=== PATIENT | female | born 1925 | race Caucasian/White ===

== ENCOUNTER 2016-12-13 12:50 | Emergency (ER) | payer MEDICARE, BC ==
--- NOTE | 2016-12-13 13:37 | EDM.PDOC ---
ED HPI GENERAL MEDICAL PROBLEM - General Chief Complaint: General Stated Complaint: MENTAL CLARITY ISSUES Time Seen by Provider: 12/13/16 13:00 Source of Information: Reports: Patient History Limitations: Reports: No Limitations - History of Present Illness INITIAL COMMENTS - FREE TEXT/NARRATIVE: History of present illness: 89-year-old female brought in by assisted living transport secondary to concerns of patient being found on the floor. Patient denies fall, and indicates that she doesn't know why she was there but that she's not hurt in any part of her body. Patient didn't tell them when they found her that maybe she had had a stroke now she said that that was an attempt at about junk. Review of systems: As per history of present illness and below otherwise all systems reviewed and negative. Past medical history: As per history of present illness and as reviewed below otherwise noncontributory. Surgical history: As per history of present illness and as reviewed below otherwise noncontributory. Social history: No reported history of drug or alcohol abuse. Family history: As per history of present illness and as reviewed below otherwise noncontributory. Physical exam: HEENT: Atraumatic, normocephalic, pupils reactive, negative for conjunctival pallor or scleral icterus, mucous membranes moist, throat clear, neck supple, nontender, trachea midline. Lungs: Clear to auscultation, breath sounds equal bilaterally, chest nontender. Heart: S1S2, regular, negative for clicks, rubs, or JVD. Abdomen: Soft, nondistended, nontender. Negative for masses or hepatosplenomegaly. Negative for costovertebral tenderness. Pelvis: Stable nontender. Genitourinary: Deferred. Rectal: Deferred. Extremities: Atraumatic, negative for cords or calf pain. Neurovascular unremarkable. Neuro: Awake, alert, oriented. Cranial nerves II through XII unremarkable. Cerebellum unremarkable. Motor and sensory unremarkable throughout. Exam nonfocal. Patient is pleasant and somewhat cooperative but gets agitated easily when questioned too much about her general medical well-being. Patient at K she desires no intervention at this time and is indicating to her daughter who is present at the bedside as well as the son who was on the phone who is a physician that she is adamant she wants no intervention performed that she wants to just go back to her home. Diagnostics: [EKG] Therapeutics: [] Impression: [Medical screen] Plan: [return to home] Definitive disposition and diagnosis as appropriate pending reevaluation and review of above. - Related Data Allergies Allergy/AdvReac Type Severity Reaction Status Date / Time No Known Allergies Allergy Verified 12/13/16 13:02 Home Meds: Home Meds Aspirin 81 mg PO BRK 04/01/16 [History] Bisacodyl [Biscolax] 10 mg RC DAILY PRN 04/01/16 [History] Ca Carbonate/Vitamin D3/Vit K [Calcium + D Soft Chewable Tab] 1 each PO DAILY [History] Dextran 70/Hypromellose [Artificial Tears] 1 drop EYEBOTH QID PRN 04/01/16 [ History] Dextrin [Fiber] 1 package PO DAILY PRN 04/01/16 [History] Doxylamine Succinate [Unisom] 25 mg PO BEDTIME PRN 04/01/16 [History] Glimepiride [Amaryl] 2 mg PO WITHBREAKFAST 04/01/16 [History] Loperamide [Imodium] 2 mg PO ASDIRECTED PRN 04/01/16 [History] Mag Hydrox/Al Hydrox/Simeth [Maalox Maximum Strength Susp] 15 ml PO QID PRN [History] [place]-3/DHA/Epa/Fish Oil [[place] 3 500 Softgel] 1 each PO DAILY 04/01/16 [History ] Pregabalin [Lyrica] 50 mg PO BID 04/01/16 [History] Ramipril [Altace] 5 mg PO DAILY 04/01/16 [History] Simvastatin [Zocor] 40 mg PO BEDTIME 04/01/16 [History] Tolterodine Tartrate [Detrol LA] 4 mg PO DAILY 04/01/16 [History] metFORMIN [Glucophage] 500 mg PO BIDMEALS 04/01/16 [History] Cyclobenzaprine [Flexeril] 10 mg PO BID PRN #12 tablet 06/12/16 [Rx] Gluc 2KCl/Chondr/Alice Hy/Hy Ac [Glucosamine & Chondroitin Cap] 1 - 2 each PO DAILY 06/12/16 [History] Magnesium Hydroxide [Milk of Magnesia] 30 ml PO BEDTIME PRN 06/12/16 [History] Naproxen Sodium 220 mg PO BID PRN 06/12/16 [History] guaiFENesin [Robitussin] 100 mg PO Q4H PRN 06/12/16 [History] Past Medical History Other HEENT History: wear glasses Cardiovascular History: Reports: CAD, High Cholesterol Respiratory History: Reports: None Gastrointestinal History: Reports: Diverticulosis, GERD Genitourinary History: Reports: None 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: Musculoskeletal History: Reports: Arthritis Neurological History: Reports: Other (See Below) Other Neuro History: cognitive deficits Psychiatric History: Reports: Anxiety, Depression Endocrine/Metabolic History: Reports: Diabetes, Type II Hematologic History: Reports: None Oncologic (Cancer) History: Reports: Breast Dermatologic History: Reports: Eczema, Other (See Below) Other Dermatologic History: dermatitis - Infectious Disease History Infectious Disease History: Reports: None Social & Family History - Family History Family Medical History: Noncontributory - Tobacco Use Smoking Status *Q: Never Smoker - Caffeine Use Caffeine Use: Reports: Coffee - Recreational Drug Use Recreational Drug Use: No ED ROS GENERAL - Review of Systems Review Of Systems: See Below (See history of present illness) ED EXAM, GENERAL - Physical Exam Exam: See Below (See history of present illness) Course - Vital Signs Last Recorded V/S: Last Vital Signs Temp 36.0 C 12/13/16 13:02 Pulse 71 12/13/16 13:02 Resp 18 12/13/16 13:02 BP 171/60 H 12/13/16 13:02 Pulse Ox 98 12/13/16 13:02 - Orders/Labs/Meds Orders: Active Orders 24 hr Category Date Time Status EKG 12 Lead [EKG Documentation Completion] [RC] STAT Care 12/13/16 13:01 Active Departure - Departure Time of Disposition: 13:34 Disposition: Home, Self-Care 01 Condition: Good Clinical Impression: Encounter for medical screening examination - Discharge Information Additional Instructions: The following information is given to patients seen in the emergency department who are being discharged to home. This information is to outline your options for follow-up care. We provide all patients seen in our emergency department with a follow-up referral. The need for follow-up, as well as the timing and circumstances, are variable depending upon the specifics of your emergency department visit. If you don't have a primary care physician on staff, we will provide you with a referral. We always advise you to contact your personal physician following an emergency department visit to inform them of the circumstance of the visit and for follow-up with them and/or the need for any referrals to a consulting specialist. The emergency department will also refer you to a specialist when appropriate. This referral assures that you have the opportunity for follow-up care with a specialist. All of these measure are taken in an effort to provide you with optimal care, which includes your follow-up. Under all circumstances we always encourage you to contact your private physician who remains a resource for coordinating your care. When calling for follow-up care, please make the office aware that this follow-up is from your recent emergency room visit. If for any reason you are refused follow-up, please contact the [facility] Emergency Department at and asked to speak to the emergency department charge nurse. Follow-up with your primary care provider as needed Return to the ER as needed as discussed - My Orders Last 24 Hours: My Active Orders 12/13/16 13:01 EKG 12 Lead [EKG Documentation Completion] [RC] STAT - Assessment/Plan Last 24 Hours: My Active Orders 12/13/16 13:01 EKG 12 Lead [EKG Documentation Completion] [RC] STAT
== END 2016-12-13 13:47 | disposition home or self-care (01) ==
LOC: MW.ED 12:50
CPT/HCPCS: 93005; 99283; 99283-25

== ENCOUNTER 2017-03-19 10:11 | Emergency (ER) | payer MEDICARE, BC ==
--- NOTE | 2017-03-19 10:19 | EDM.PDOC ---
ED HPI GENERAL MEDICAL PROBLEM - General Stated Complaint: LT LEG HURTS Time Seen by Provider: 03/19/17 10:12 Source of Information: Reports: Patient History Limitations: Reports: No Limitations - History of Present Illness INITIAL COMMENTS - FREE TEXT/NARRATIVE: HISTORY AND PHYSICAL: History of present illness: Patient is an 89-year-old female who presents to the emergency room today with complaints of bruising to the anterior part of her left flannery. States she has noticed this bruising for approximately 5 days and is concerned she may have a blood clot. Patient denies any recent falls or trauma to the affected extremity. Denies any calf pain or difficulty ambulating. Patient reports she had a previous blood clot above the left patella which required oral anticoagulants which she is currently not on. She does take an 81 mg aspirin daily. Reports she is supposed to be wearing RUFINA hose to the right lower extremity, which she is currently not wearing. Retired, lives at the [facility] with minimal supervision. Patient was seen December 2016 in the emergency room and was reported to have fallen. When asked about this visit, the patient stated that she did not remember falling at that time and "I was loopy then". Review of systems: As per history of present illness and below otherwise all systems reviewed and negative. Past medical history: As per history of present illness and as reviewed below otherwise noncontributory. Surgical history: As per history of present illness and as reviewed below otherwise noncontributory. Social history: No reported history of drug or alcohol abuse. Family history: As per history of present illness and as reviewed below otherwise noncontributory. Physical exam: HEENT: Atraumatic, normocephalic, pupils reactive, negative for conjunctival pallor or scleral icterus, mucous membranes moist, throat clear, neck supple, nontender, trachea midline. Lungs: Clear to auscultation, breath sounds equal bilaterally, chest nontender. Heart: S1S2, regular rate and rhythm, positive for murmur. Abdomen: Soft, nondistended, nontender. Negative for masses or hepatosplenomegaly. Negative for costovertebral tenderness. Pelvis: Stable nontender. Genitourinary: Deferred. Rectal: Deferred. Extremities: Atraumatic, negative for cords or calf pain. No foot drop noted. No knee instability noted. Able to weight-bear without pain. Able to ambulate without difficulty. Neurovascular unremarkable. Skin: Diffuse bruising noted to the left anterior medial/mid flannery. Reports mild tenderness with palpation at the site of bruising. No edema noted bilaterally. Strong pedal pulses bilaterally. Neuro: Awake, alert, oriented. Cranial nerves II through XII unremarkable. Cerebellum unremarkable. Motor and sensory unremarkable throughout. Exam nonfocal. Discussed with patient the available diagnostics. Patient is adamant she would like an ultrasound to rule out DVT. Diagnostics: X-ray, ultrasound Therapeutics: Ice, elevation Impression: Contusion of the left lower extremity Plan: 1. Your x-ray and ultrasound were normal today. No evidence of a fracture or DVT. Please continue to weigh her RUFINA hose as directed. Continue to ice and elevate the extremity while resting at home. If he continue to have problems I would like you to follow-up with your primary care provider in the next couple days. 2. Return to the ED as needed as discussed Definitive disposition and diagnosis as appropriate pending reevaluation and review of above. - Related Data Allergies Allergy/AdvReac Type Severity Reaction Status Date / Time No Known Allergies Allergy Verified 03/19/17 10:17 Home Meds: Home Meds Glimepiride [Amaryl] 2 mg PO WITHBREAKFAST 04/01/16 [History] Ramipril [Altace] 5 mg PO DAILY 04/01/16 [History] Simvastatin [Zocor] 40 mg PO BEDTIME 04/01/16 [History] metFORMIN [Glucophage] 500 mg PO BIDMEALS 04/01/16 [History] Biotin 5,000 mg PO DAILY 03/19/17 [History] Citalopram [Celexa] 20 mg PO DAILY 03/19/17 [History] Past Medical History Other HEENT History: wear glasses Cardiovascular History: Reports: CAD, High Cholesterol Respiratory History: Reports: None Gastrointestinal History: Reports: Diverticulosis, GERD Genitourinary History: Reports: 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: Musculoskeletal History: Reports: Arthritis Neurological History: Reports: Other (See Below) Other Neuro History: cognitive deficits Psychiatric History: Reports: Anxiety, Depression Endocrine/Metabolic History: Reports: Diabetes, Type II Hematologic History: Reports: None Oncologic (Cancer) History: Reports: Breast Dermatologic History: Reports: Eczema, Other (See Below) Other Dermatologic History: dermatitis - Infectious Disease History Infectious Disease History: Reports: None Social & Family History - Family History Family Medical History: Noncontributory - Tobacco Use Smoking Status *Q: Never Smoker - Caffeine Use Caffeine Use: Reports: Coffee - Recreational Drug Use Recreational Drug Use: No ED ROS GENERAL - Review of Systems Review Of Systems: ROS reveals no pertinent complaints other than HPI. ED EXAM, GENERAL - Physical Exam Exam: See Below (See dictation) Course - Vital Signs Last Recorded V/S: Last Vital Signs Temp 36.4 C 03/19/17 10:18 Pulse 67 03/19/17 10:18 Resp 16 03/19/17 10:18 BP 165/69 H 03/19/17 10:18 Pulse Ox 97 03/19/17 10:18 Departure - Departure Time of Disposition: 11:56 Disposition: Home, Self-Care 01 Clinical Impression: Contusion Qualifiers: Encounter type: initial encounter Contusion area: lower leg Laterality: left Qualified Code(s): S80.12XA - Contusion of left lower leg, initial encounter - Discharge Information Referrals: James Rogers MD [Primary Care Provider] - Additional Instructions: My general discharge The following information is given to patients seen in the emergency department who are being discharged to home. This information is to outline your options for follow-up care. We provide all patients seen in our emergency department with a follow-up referral. The need for follow-up, as well as the timing and circumstances, are variable depending upon the specifics of your emergency department visit. If you don't have a primary care physician on staff, we will provide you with a referral. We always advise you to contact your personal physician following an emergency department visit to inform them of the circumstance of the visit and for follow-up with them and/or the need for any referrals to a consulting specialist. The emergency department will also refer you to a specialist when appropriate. This referral assures that you have the opportunity for follow-up care with a specialist. All of these measure are taken in an effort to provide you with optimal care, which includes your follow-up. Under all circumstances we always encourage you to contact your private physician who remains a resource for coordinating your care. When calling for follow-up care, please make the office aware that this follow-up is from your recent emergency room visit. If for any reason you are refused follow-up, please contact the [facility] Emergency Department at and asked to speak to the emergency department charge nurse. VANESSA [facility] [address] [place] [id number] 1. Your x-ray and ultrasound were normal today. No evidence of a fracture or DVT. Please continue to weigh her RUFINA hose as directed. Continue to ice and elevate the extremity while resting at home. If he continue to have problems I would like you to follow-up with your primary care provider in the next couple days. 2. Return to the ED as needed as discussed
--- NOTE | 2017-03-19 11:20 | US ---
ULTRASOUND EXAMINATION OF the left lower extremity WITH DOPPLER HISTORY: Pain FINDINGS: Examination of the left leg was performed from the groin to the calf region. All visualized segments including common femoral, proximal greater saphenous, superficial femoral, popliteal and calf veins appear patent with good compressibility and augmentation. There is no evidence of deep vein thrombos is. IMPRESSION: No evidence of a DVT.
--- NOTE | 2017-03-19 11:32 | CR ---
EXAMINATION: Left tibia and fibula HISTORY: Pain COMPARISON: Knee dated 01/25/2015 TECHNIQUE: 2 views FINDINGS/IMPRESSION: The visualized osseous structures appear osteopenic without definite acute osseo us abnormality. The visualized joint spaces appear preserved. No focal soft tissue swelling.
[2017-03-19 12:12] VITALS: BP 151/67
== END 2017-03-19 12:04 | disposition home or self-care (01) ==
LOC: MW.ED 10:11
DX: S80.12XA Contusion of left lower leg, initial encounter (principal); E78.00 Pure hypercholesterolemia, unspecified; K21.9 Gastro-esophageal reflux disease without esophagitis; E11.9 Type 2 diabetes mellitus without complications; Z79.899 Other long term (current) drug therapy; Z79.84 Long term (current) use of oral hypoglycemic drugs; Z79.82 Long term (current) use of aspirin; X58.XXXA Exposure to other specified factors, initial encounter
CPT/HCPCS: 73590-26-LT; 73590-LT; 93971-26-LT; 93971-LT; 99282; 99284-25